=== PATIENT | female | born 1990 | race African-American/Black ===

== ENCOUNTER 2018-01-11 13:59 | Emergency (ER) | payer BC ==
[~2018-01-11] VITALS: Ht 157.5 cm; Wt 79.5 kg
[~2018-01-11 13:59] MED LIST: AMOXICILLIN 50500 MG PO; DESOWEN0.051 TP; DOXYCYCLINE 10100 MG PO; FLAGYL500 MG PO; NO HOME MEDICATIONS; NORCO 325 MG-7.1 TAB PO; PREDNISONE20 MG PO; PRENATAL1 TA1 PO; TYLENOL 500MG500 MG PO; ZITHROMAX Z PA250 MG PO
[2018-01-11 14:03] VITALS: TEMP 99.9
[2018-01-11 14:55] LABS: COLLECTION METHOD CLEAN CATCH
[2018-01-11 15:05] LABS: MUCOUS Present /lpf; PH 5 (5-8); URINE APPEARANCE Clear; URINE BACTERIA Rare /hpf; URINE BILIRUBIN Negative (NEGATIVE); URINE BLOOD Negative (NEGATIVE); URINE COLOR Yellow; URINE GLUCOSE Negative (NEGATIVE); URINE KETONE Negative (NEGATIVE); URINE LEUKOCYTE ESTERASE Negative (NEGATIVE); URINE NITRATE Negative (NEGATIVE); URINE PROTEIN(semi-quant) 1+ (NEGATIVE); URINE RBC 0-2 /hpf; URINE UROBILINOGEN Negative (NEGATIVE)
[2018-01-11] MEDS ORDERED: ZOFRAN ODT4 MG PO (15:11)
[2018-01-11 15:54] VITALS: BP 118/73; PULSE 95
== END 2018-01-11 15:58 | disposition home or self-care (01) ==
LOC: COL.ER 13:59
PROVIDERS: Physician Assistant
DX: R11.2 Nausea with vomiting, unspecified (principal)

== ENCOUNTER → 2018-08-06 | Emergency (ER) | payer OTHER, BC ==
[~2018-08-06] VITALS: Ht 157.5 cm; Wt 78.2 kg
[~2018-08-06] MED LIST changes: +FLEXERIL 1010 MG/TAB PO; +MACROBID 1100 MG/CAP PO; +ZOFRAN ODT4 MG PO
[2018-08-06 20:02] VITALS: BP 145/80; PULSE 67; TEMP 99
== END ==
LOC: COL.ER 19:59
DX: M54.5 Low back pain (principal)

== ENCOUNTER 2018-08-07 07:02 | Emergency (ER) | payer OTHER ==
[~2018-08-07] VITALS: Ht 160 cm; Wt 79.5 kg
[~2018-08-07 07:02] MED LIST changes: -FLEXERIL 1010 MG/TAB PO; -MACROBID 1100 MG/CAP PO
[2018-08-07 07:53] LABS: COLLECTION METHOD CLEAN CATCH
[2018-08-07 08:04] LABS: MUCOUS Present /lpf; PH 6 (5-8); SQUAMOUS EPITHELIAL 0-2 /hpf; URINE APPEARANCE Clear; URINE BACTERIA None Seen /hpf; URINE BILIRUBIN Negative (NEGATIVE); URINE BLOOD Negative (NEGATIVE); URINE COLOR Yellow; URINE GLUCOSE Negative (NEGATIVE); URINE KETONE Negative (NEGATIVE); URINE LEUKOCYTE ESTERASE Trace (NEGATIVE); URINE NITRATE Negative (NEGATIVE); URINE PROTEIN(semi-quant) Negative (NEGATIVE)
[2018-08-07] MEDS ORDERED: MACROBID 1100 MG/CAP PO (08:50)
[2018-08-07] MEDS ORDERED: FLEXERIL 1010 MG/TAB PO (08:50)
[2018-08-07 09:02] VITALS: BP 103/68; PULSE 58; TEMP 97.9
== END 2018-08-07 09:13 | disposition home or self-care (01) ==
LOC: COL.ER 07:02
PROVIDERS: Emergency Medicine
DX: S39.012A Strain of muscle, fascia and tendon of lower back, initial encounter (principal); S40.012A Contusion of left shoulder, initial encounter; S40.011A Contusion of right shoulder, initial encounter; S80.01XA Contusion of right knee, initial encounter; F17.210 Nicotine dependence, cigarettes, uncomplicated; N39.0 Urinary tract infection, site not specified; V43.62XA Car passenger injured in collision with other type car in traffic accident, initial encounter
CPT/HCPCS: J1885

== ENCOUNTER → 2019-07-02 | Outpatient (CLI) | payer MEDICAID ==
[~2019-07-02] MED LIST changes: +FLEXERIL 1010 MG/TAB PO; +MACROBID 1100 MG/CAP PO
== END ==
LOC: COL.RAD 09:57
DX: Z31.41 Encounter for fertility testing (principal); N97.9 Female infertility, unspecified
CPT/HCPCS: Q9967

== ENCOUNTER 2019-12-23 12:52 | Emergency (ER) | payer MEDICAID ==
[~2019-12-23] VITALS: Ht 157.5 cm; Wt 88.2 kg
[2019-12-23 13:01] VITALS: TEMP 98.9
[2019-12-23 13:35] LABS: COLLECTION METHOD CLEAN CATCH
[2019-12-23 13:41] LABS: MUCOUS Present /lpf; PH 5 (5-8); URINE APPEARANCE Hazy; URINE BACTERIA None Seen /hpf; URINE BILIRUBIN Negative (NEGATIVE); URINE BLOOD Negative (NEGATIVE); URINE COLOR Yellow; URINE GLUCOSE Negative (NEGATIVE); URINE KETONE Negative (NEGATIVE); URINE LEUKOCYTE ESTERASE Negative (NEGATIVE); URINE NITRATE Negative (NEGATIVE); URINE PROTEIN(semi-quant) 1+ (NEGATIVE); URINE RBC 0-2 /hpf; URINE UROBILINOGEN Negative (NEGATIVE)
[2019-12-23 14:01] LABS: BASO # 0.1 (0.0-0.2); BASO % 0.3 % (0.0-2.0); EOS # 0.4 (0.0-0.7); GRAN # 16.8 (1.4-6.5); HEMOGLOBIN 11.8 g/dl (12.5-16.0); LYMPH # 2.2 (1.2-3.4); LYMPH % 10.7 % (20.0-51.0); MEAN CELL VOLUME 93 fl (80.0-100.0); MEAN CORPUSCULAR HEMOGLOBIN 31 pg (27.0-31.0); MEAN CORPUSCULAR HGB CONC 33 g/dl (33.0-37.0); MEAN PLATELET VOLUME 10.3 fl (7.4-10.4); MONO # 0.7 (0.1-0.6); MONO % 3.7 % (1.7-9.3); PLATELET COUNT 313 K/mm3 (130-400); REDCELL DISTRIBUTION WIDTH-CV 13.1 % (11.5-14.5)
[2019-12-23 14:18] LABS: HEMATOCRIT 35.4 % (37.0-47.0)
[2019-12-23 14:35] LABS: ALBUMIN 3.7 gm/dL (3.5-5.0); BILIRUBIN,TOTAL 0.3 mg/dL (0.0-1.0); CALCIUM 9.3 mg/dL (8.4-10.2); CREATININE, serum 0.55 (0.52-1.25); POTASSIUM 3.5 mmol/L (3.4-5.0); TOTAL PROTEIN 7.2 gm/dL (6.4-8.2)
[2019-12-23 16:20] VITALS: BP 139/94; PULSE 79
[2019-12-24] MEDS ORDERED: PHENERGAN 25 TA25 MG PO (19:00)
== END 2019-12-23 16:26 | disposition home or self-care (01) ==
LOC: COL.ER 12:52
PROVIDERS: Family Medicine; Physician Assistant
DX: O26.891 Other specified pregnancy related conditions, first trimester (principal); R10.2 Pelvic and perineal pain; Z3A.14 14 weeks gestation of pregnancy; Z91.048 Other nonmedicinal substance allergy status; Z79.2 Long term (current) use of antibiotics
CPT/HCPCS: J7120

== ENCOUNTER 2019-12-24 17:12 | Emergency (ER) | payer MEDICAID ==
[~2019-12-24] VITALS: Ht 157.5 cm; Wt 88.2 kg
[2019-12-24 17:16] VITALS: BP 113/84; TEMP 98.1
[2019-12-24 17:35] LABS: BASO # 0.1 (0.0-0.2); BASO % 0.3 % (0.0-2.0); EOS # 0.2 (0.0-0.7); GRAN # 17.2 (1.4-6.5); GRAN % 79.4 % (42.2-75.2); LYMPH # 2.9 (1.2-3.4); LYMPH % 13.3 % (20.0-51.0); MEAN CELL VOLUME 93 fl (80.0-100.0); MEAN CORPUSCULAR HEMOGLOBIN 31 pg (27.0-31.0); MEAN CORPUSCULAR HGB CONC 33 g/dl (33.0-37.0); MEAN PLATELET VOLUME 10.4 fl (7.4-10.4); MONO # 1.2 (0.1-0.6); MONO % 5.6 % (1.7-9.3); PLATELET COUNT 316 K/mm3 (130-400); RED BLOOD COUNT 3.93 M/mm3 (4.10-5.30); REDCELL DISTRIBUTION WIDTH-CV 13.1 % (11.5-14.5)
[2019-12-24 17:39] LABS: HEMATOCRIT 36.6 % (37.0-47.0)
[2019-12-24 17:48] LABS: BILIRUBIN,TOTAL 0.4 mg/dL (0.0-1.0); C-REACTIVE PROTEIN 4.5 mg/dL (0.0-0.9); CALCIUM 9.4 mg/dL (8.4-10.2); CREATININE, serum 0.73 (0.52-1.25); POTASSIUM 3.8 mmol/L (3.4-5.0); TOTAL PROTEIN 7.4 gm/dL (6.4-8.2)
[2019-12-24] MEDS ORDERED: PHENERGAN 25 TA25 MG PO (19:00)
[2019-12-24 19:14] VITALS: PULSE 98
== END 2019-12-24 19:16 | disposition home or self-care (01) ==
LOC: COL.ER 17:12
PROVIDERS: Nurse Practitioner
DX: O26.892 Other specified pregnancy related conditions, second trimester (principal); R10.31 Right lower quadrant pain; O99.332 Smoking (tobacco) complicating pregnancy, second trimester; F17.200 Nicotine dependence, unspecified, uncomplicated; Z3A.15 15 weeks gestation of pregnancy; Z91.048 Other nonmedicinal substance allergy status

== ENCOUNTER 2020-06-12 05:27 | Inpatient (IN) | payer MEDICAID ==
[2020-06-12] VITALS (19 sets, daily range): BP systolic 72–144; BP diastolic 45–78; PULSE 64–77; TEMP 97.6–98.2
[~2020-06-12] VITALS: Ht 158.8 cm; Wt 95.0 kg
[~2020-06-12 05:27] MED LIST changes: +PHENERGAN 25 TA25 MG PO
--- NOTE | 2020-06-12 05:35 | NUR ---
0535- PT PRESENTS TO LDR FOR SCHEDULED REPEAT SECTION, AMBULATORY TO ROOM 213. CHANGED INTO GOWN. EFM APPLIED. CONSENTS SIGNED. 0550- IV TO LEFT WRIST CHARTED. BLOOD DRAWN FOR LAB. LR INFUSING ORDERED. 0563- CONSENTS SIGNED.
[2020-06-12 07:03] LABS: BASO % 0.3 % (0.0-2.0); EOS # 0.2 (0.0-0.7); EOS % 1.3 % (0-4.0); GRAN # 9.3 (1.4-6.5); GRAN % 71.5 % (42.2-75.2); LYMPH # 2.5 (1.2-3.4); LYMPH % 18.9 % (20.0-51.0); MEAN CELL VOLUME 93 fl (80.0-100.0); MEAN CORPUSCULAR HEMOGLOBIN 29 pg (27.0-31.0); MEAN CORPUSCULAR HGB CONC 31 g/dl (33.0-37.0); MEAN PLATELET VOLUME 11.4 fl (7.4-10.4); MONO % 7.4 % (1.7-9.3); PLATELET COUNT 307 K/mm3 (130-400); RED BLOOD COUNT 3.76 M/mm3 (4.10-5.30); REDCELL DISTRIBUTION WIDTH-CV 14.1 % (11.5-14.5)
--- NOTE | 2020-06-12 12:48 | NUR ---
1240 CUDDLING BABY. PERCOCET GIVEN FOR PAIN
[2020-06-13 03:00] VITALS: BP 142/74; PULSE 66; TEMP 99
[2020-06-13 07:40] VITALS: BP 141/74; PULSE 65; TEMP 98
[2020-06-13 07:59] LABS: HEMATOCRIT 28.3 % (37.0-47.0); HEMOGLOBIN 9.1 g/dl (12.5-16.0)
[2020-06-13] MEDS ORDERED: IBU600 MG PO (10:07)
[2020-06-13] MEDS ORDERED: PERCOCET 325 MG1 TA2 PO (10:07)
--- NOTE | 2020-06-13 12:44 | NUR ---
PATIENT IS STATING NO PAIN AND HAS DENIED NEED FOR PAIN MEDS OTHER THAN THE SCHEDULED IBUPROFEN
--- NOTE | 2020-06-13 13:51 | NUR ---
PATIENT REMOVED ABDOMINAL DRESSING IN THE SHOWER. INCISION WAS VIEWED BY THIS RN AND THE INCISION LOOKS GREAT WITH NO SIGNS OF SEPARATION OR INFECTION AT THIS TIME.
--- NOTE | 2020-06-13 14:03 | NUR ---
PATIENT LEFT UNIT AT 1255 TO WALK AROUND THE HOSPITAL. SHE IS AWARE BABY CANNOT GO WITH HER AND NOT TO LEAVE THE PREMISES. PATIENT BACK AROUND 1330
[2020-06-13 15:30] VITALS: BP 142/77; PULSE 79; TEMP 98.5
--- NOTE | 2020-06-13 17:26 | NUR ---
PATIENT OFF THE UNIT AT 1720 TO WALK AROUND THE HOSPITAL. AWARE SHE CANNOT LEAVE THE PREMISES
[2020-06-13 21:50] VITALS: BP 126/80; PULSE 92; TEMP 98.4
[2020-06-14 07:25] VITALS: BP 125/84; PULSE 78; TEMP 97.5
== END 2020-06-14 10:55 | disposition home or self-care (01) | DRG 788 ==
LOC: OB 05:27
PROVIDERS: ADMIT Obstetrics & Gynecology
PROC: 10D00Z1 Extraction of Products of Conception, Low, Open Approach (ICD-10-PCS; principal; 2020-06-12)
PROC: 0UB90ZZ Excision of Uterus, Open Approach (ICD-10-PCS; 2020-06-12)
DX: O34.211 Maternal care for low transverse scar from previous cesarean delivery (principal); Z3A.39 39 weeks gestation of pregnancy; Z37.0 Single live birth; O34.13 Maternal care for benign tumor of corpus uteri, third trimester; D25.9 Leiomyoma of uterus, unspecified; O99.02 Anemia complicating childbirth; K21.9 Gastro-esophageal reflux disease without esophagitis; O99.619 Diseases of the digestive system complicating pregnancy, unspecified trimester; Z86.16 Personal history of COVID-19; O99.214 Obesity complicating childbirth
CPT/HCPCS: J0690; J1100; J1885; J2405; J2590; J3010; J7120

== ENCOUNTER 2021-02-28 05:14 | Emergency (ER) | payer MEDICAID ==
[~2021-02-28] VITALS: Ht 157.5 cm; Wt 77.3 kg
[~2021-02-28 05:14] MED LIST changes: +IBU600 MG PO; +PERCOCET 325 MG1 TA2 PO
[2021-02-28 05:19] VITALS: BP 145/96; TEMP 97.2
[2021-02-28 06:32] VITALS: PULSE 72
== END 2021-02-28 06:32 | disposition home or self-care (01) ==
LOC: COL.ER 05:14
DX: S60.111A Contusion of right thumb with damage to nail, initial encounter (principal); F17.210 Nicotine dependence, cigarettes, uncomplicated; W23.1XXA Caught, crushed, jammed, or pinched between stationary objects, initial encounter; Y99.0 Civilian activity done for income or pay